=== PATIENT | female | born 1925 | race Caucasian/White ===

== ENCOUNTER 2017-09-03 21:38 | Emergency (ER) | payer OTHER ==
[~2017-09-03] VITALS: Ht 165.1 cm; Wt 54.5 kg
[2017-09-03] MEDS ORDERED: CARV3 PO (21:45)
[2017-09-03] MEDS ORDERED: LISI-660 PO (21:45)
[2017-09-03] MEDS ORDERED: ASPI-1182 PO (21:45)
[2017-09-03] MEDS ORDERED: ATOR10TA84 PO (21:45)
[2017-09-03 21:49] VITALS: BP 134/76
== END 2017-09-03 23:14 | disposition home or self-care (01) ==
LOC: EMS 21:41
DX: M62.838 Other muscle spasm (principal); Z88.8 Allergy status to other drugs, medicaments and biological substances; Z79.82 Long term (current) use of aspirin
CPT/HCPCS: 99281